=== PATIENT | female | born 1995 | race African-American/Black ===

== ENCOUNTER 2018-02-05 17:29 | Emergency (ER) | payer MEDICAID ==
[~2018-02-05] VITALS: Ht 162.6 cm; Wt 113.6 kg
[2018-02-05] MEDS ORDERED: IBUPROFEN 600 MG TABLET PO ONE (18:30)
[2018-02-05 20:02] VITALS: BP 115/78
== END 2018-02-05 20:09 | disposition home or self-care (01) ==
LOC: EMS 17:30
DX: S93.401A Sprain of unspecified ligament of right ankle, initial encounter (principal); W01.0XXA Fall on same level from slipping, tripping and stumbling without subsequent striking against object, initial encounter; Y93.01 Activity, walking, marching and hiking; Y92.410 Unspecified street and highway as the place of occurrence of the external cause; Y99.8 Other external cause status
CPT/HCPCS: 29515; 99284